=== PATIENT | female | born 1935 | race Caucasian/White ===

== ENCOUNTER 2017-07-20 09:08 | Observation (INO) ==
[2017-07-20] MEDS ORDERED: NS 1,000 ML IV ONE (09:52)
[2017-07-20 10:19] LABS: MANUAL DIFF NEEDED? NO
[2017-07-20 10:22] LABS: BASO% 0.4 % (0.0-0.8); EOS# 0.15 X1000 (0.0-0.7); EOS% 2.1 % (0.0-10.0); HEMATOCRIT 49.2 % (37.0-47.0); HEMOGLOBIN 16.1 g/dL (12.0-16.0); LYMPH# 1.54 X1000 (1.2-3.4); LYMPH% 21.3 % (20.5-51.1); MCH 30.8 PG (27-31); MCHC 32.7 g/dL (33-37); MCV 94.1 FL (81-99); MONO# 0.64 X1000 (0.11-0.59); MONO% 8.8 % (1.7-9.3); MPV 9.8 FL (7.4-10.4); NEUT% 67.4 % (42.2-75.2); PLT 228 X1000 (130-400); RBC 5.23 XMIL (4.2-5.4)
[2017-07-20 10:32] LABS: ALBUMIN 3.7 g/dL (3.5-5.0); CALCIUM 8.6 mg/dL (8.8-10.2); MAGNESIUM 2.1 mg/dL (1.5-2.7); TOTAL BILIRUBIN 0.7 mg/dL (0.20-1.00); TOTAL PROTEIN 6.9 g/dL (6.3-8.3)
[2017-07-20] MEDS ORDERED: ASPIRIN PO ONE (10:43)
[2017-07-20 10:45] LABS: INR 1.03; PROTIME 10.8 Seconds (9.2-11.7); PTT 25.7 Seconds (22.0-36.0)
[2017-07-20] MEDS ORDERED: TYLENOL PO PRN (11:46)
[2017-07-20] MEDS ORDERED: ZOFRAN IV PRN (11:46)
[2017-07-20] MEDS ORDERED: ATIVAN PO PRN (13:44)
[2017-07-20] MEDS: BETAPACE PO SCH ×2 (19:54→20:02)
[2017-07-20] MEDS: ELIQUIS PO SCH ×2 (19:54→20:03)
[2017-07-20] MEDS: ISOPTIN SR PO SCH ×2 (19:54→20:03)
[2017-07-21 06:48] LABS: URINE CULTURE NEEDED? NO; URINE MICRO REVIEW NEEDED? NO; URINE SOURCE CLEAN CATCH
[2017-07-21 06:51] LABS: BILIRUBIN URINE NEGATIVE (NEGATIVE); BLOOD URINE NEGATIVE (NEGATIVE); COLOR YELLOW; GLUCOSE URINE NEGATIVE (NEGATIVE); LEUKOCYTES URINE MODERATE (NEGATIVE); NITRITE URINE NEGATIVE (NEGATIVE); PH URINE 6.5; PROTEIN URINE NEGATIVE (NEGATIVE); SP GRAVITY URINE 1.004; TURBIDITY URINE HAZY (CLEAR); UROBILINOGEN URINE NORMAL (NORMAL)
[2017-07-21 06:52] LABS: UR EPITHELIAL CELLS <10 /HPF (<10); URINE BACTERIA 4+ /HPF; URINE RBC <10 /HPF (<10)
[2017-07-21 07:27] LABS: CALCIUM 9.5 mg/dL (8.8-10.2); POTASSIUM 4.6 mmol/L (3.5-5.1)
[2017-07-21 07:30] LABS: HEMOGLOBIN A1C 5.8 % (4.8-6.0)
[2017-07-21] MEDS: BETAPACE PO SCH (08:19)
[2017-07-21] MEDS: ELIQUIS PO SCH ×2 (08:19→18:56)
[2017-07-21] MEDS: ISOPTIN SR PO SCH (08:19)
[2017-07-21 17:53] VITALS: BP 136/86
== END 2017-07-21 19:15 | disposition home or self-care (01) ==
LOC: 3N 09:08 → ED 09:08
PROVIDERS: ADMIT Emergency Medicine; ATTEND Emergency Medicine